=== PATIENT | female | born 1975 | race American Indian/Alaskan Native ===

== ENCOUNTER 2020-12-10 15:46 | Emergency (ER) | payer MEDICAID ==
[2020-12-10 16:31] LABS: Basophils % (Auto) 0.2 % (0.0-1.8); Eosinophils % (Auto) 0.1 % (0.0-4.3); Hematocrit 44.9 % (30.3-42.9); Hemoglobin 15.4 gm/dl (10.1-14.3); Lymphocytes # (Auto) 0.8 K/mm3 (1.2-5.4); Lymphocytes % (Auto) 10.2 % (13.4-35.0); Mean Corpuscular HGB Conc 34 % (30-34); Mean Corpuscular Volume 93 fl (79-97); Monocytes # (Auto) 0.4 K/mm3 (0.0-0.8); Monocytes % (Auto) 5.4 % (0.0-7.3); Platelet Count 204 K/mm3 (140-440); Red Blood Count 4.83 M/mm3 (3.65-5.03); Red Cell Distribution Width 14.3 % (13.2-15.2)
--- NOTE | 2020-12-10 16:39 | XRay Report ---
XR chest 1V ap INDICATION / CLINICAL INFORMATION: hypertension. COMPARISON: None available. FINDINGS: SUPPORT DEVICES: None. HEART /PULMONARY VASCULATURE: No significant abnormality. LUNGS / PLEURA: No significant pulmonary or pleural abnormality. No pneumothorax. ADDITIONAL FINDINGS: No significant additional findings. IMPRESSION: 1. No acute findings. Signer Name: Abdirahman Lopez MD Signed: 12/10/2020 4:35 PM Workstation Name: [id number]
[2020-12-10 16:41] LABS: INR 1.05 (0.87-1.13)
[2020-12-10 16:42] LABS: Partial Thromboplastin Time 28.2 Sec. (24.2-36.6)
[2020-12-10 16:59] LABS: Alanine Aminotransferase 12 units/L (7-56); Albumin 4.3 g/dL (3.9-5); Blood Urea Nitrogen 6 mg/dL (7-17); Calcium 9.2 mg/dL (8.4-10.2); Creatine Kinase MB 1.2 ng/mL (0.0-4.0); Hemolysis Index 8
[2020-12-10 17:16] LABS: BUN/Creatinine Ratio 10; Bilirubin,Direct < 0.2 mg/dL (0-0.2)
--- NOTE | 2020-12-10 17:51 | Emergency Department Report ---
ED General Adult HPI - General Chief complaint: Arrhythmia/Palpitations Stated complaint: ELEVATED HEART RATE Time Seen by Provider: 12/10/20 16:07 Source: patient, EMS Mode of arrival: Stretcher Limitations: No Limitations - History of Present Illness Initial comments: 45-year-old female states that she abruptly felt like her heart was racing. She was found to be in a "a flutter" by EMS. Review of her prehospital EKG was more suggestive of SVT. In any case an IV was initiated and the patient was given fluid. She promptly converted to normal sinus rhythm. Patient stated that she has never been hospitalized in the past. She is on no current medications. She is not compliant with her lisinopril which she thinks was 5 mg tablets. She denies having any other cardiovascular issues. Patient admits to "going to the club" last night. She denies substance use other than marijuana. She was drinking alcohol last night. Patient stated that she briefly felt short of breath with the rapid heart rate. But this resolved with "the fluids". She denies any chest pain. She denies any leg swelling or cough. She did not get dizzy or presyncopal. -: Sudden Consistency: now resolved Improves with: none Worsens with: none Associated Symptoms: denies other symptoms Treatments Prior to Arrival: none - Related Data Previous Rx's Medication Instructions Recorded Last Taken Type amLODIPine 10 mg PO DAILY #30 tab 12/10/20 Unknown Rx Allergies Allergy/AdvReac Type Severity Reaction Status Date / Time shellfish derived Allergy Anaphylaxis Verified 12/10/20 15:56 ED Review of Systems ROS: Stated complaint: ELEVATED HEART RATE Other details as noted in HPI Constitutional: denies: chills, fever Eyes: denies: eye pain, vision change ENT: denies: ear pain, throat pain Respiratory: see HPI, shortness of breath. denies: cough Cardiovascular: denies: chest pain, palpitations Endocrine: no symptoms reported Gastrointestinal: denies: abdominal pain, nausea, diarrhea Genitourinary: denies: urgency, dysuria, discharge Musculoskeletal: denies: back pain, joint swelling, arthralgia Skin: denies: rash, lesions Neurological: denies: headache, weakness, paresthesias Psychiatric: denies: anxiety, depression Hematological/Lymphatic: denies: easy bleeding, easy bruising ED Past Medical Hx - Past Medical History Previous Medical History?: No - Surgical History Past Surgical History?: No - Social History Smoking Status: Current Every Day Smoker Substance Use Type: Alcohol, Marijuana - Medications Home Medications: Home Medications Medication Instructions Recorded Confirmed Last Taken Type amLODIPine 10 mg PO DAILY #30 tab 12/10/20 Unknown Rx ED Physical Exam - General Limitations: No Limitations General appearance: alert, in no apparent distress - Head Head exam: Present: atraumatic, normocephalic - Eye Eye exam: Present: normal appearance. Absent: scleral icterus - ENT ENT exam: Present: mucous membranes moist - Neck Neck exam: Present: normal inspection. Absent: tenderness - Respiratory Respiratory exam: Present: normal lung sounds bilaterally. Absent: respiratory distress - Cardiovascular Cardiovascular Exam: Present: regular rate, normal rhythm. Absent: systolic murmur, diastolic murmur, rubs, gallop - GI/Abdominal GI/Abdominal exam: Present: soft, normal bowel sounds. Absent: distended, tenderness, guarding, rebound, rigid - Extremities Exam Extremities exam: Present: normal inspection, normal capillary refill. Absent: pedal edema, joint swelling, calf tenderness - Back Exam Back exam: Present: normal inspection - Neurological Exam Neurological exam: Present: alert, oriented X3, CN II-XII intact. Absent: motor sensory deficit - Psychiatric Psychiatric exam: Present: normal affect, normal mood - Skin Skin exam: Present: warm, dry, intact, normal color. Absent: rash ED Course Vital Signs 12/10/20 12/10/20 12/10/20 16:02 16:04 16:16 Temperature 98.2 F Pulse Rate 93 H Respiratory 15 18 Rate O2 Sat by Pulse 99 100 Oximetry - Reevaluation(s) Reevaluation #1: Charge nurse stated to me that the patient wanted to leave AGAINST MEDICAL ADVICE. I will not require her to sign out AGAINST MEDICAL ADVICE. She is gi bren a prescription for amlodipine, referral to primary care and cardiology. 12/10/20 18:02 ED Medical Decision Making - Lab Data Result diagrams: 12/10/20 16:21 12/10/20 16:21 Laboratory Results - last 24 hr 12/10/20 12/10/20 12/10/20 16:21 16:21 16:21 WBC 7.5 RBC 4.83 Hgb 15.4 H Hct 44.9 H MCV 93 MCH 32 MCHC 34 RDW 14.3 Plt Count 204 Lymph % (Auto) 10.2 L [place] % (Auto) 5.4 Eos % (Auto) 0.1 Baso % (Auto) 0.2 Lymph # (Auto) 0.8 L [place] # (Auto) 0.4 Eos # (Auto) 0.0 Baso # (Auto) 0.0 Seg Neutrophils % 84.1 H Seg Neutrophils # 6.3 PT 13.5 INR 1.05 APTT 28.2 Sodium 139 Potassium 3.7 Chloride 102.8 Carbon Dioxide 25 Anion Gap 15 BUN 6 L Creatinine 0.6 Estimated GFR > 60 BUN/Creatinine Ratio 10 Glucose 100 Calcium 9.2 Magnesium 1.60 L Total Bilirubin 0.50 Direct Bilirubin < 0.2 Indirect Bilirubin 0.3 AST 20 ALT 12 Alkaline Phosphatase 140 H Total Creatine Kinase 64 CK-MB (CK-2) 1.2 CK-MB (CK-2) Rel Index 1.8 Troponin T < 0.010 Total Protein 9.0 H Albumin 4.3 Albumin/Globulin Ratio 0.9 TSH 12/10/20 16:21 WBC RBC Hgb Hct MCV MCH MCHC RDW Plt Count Lymph % (Auto) [place] % (Auto) Eos % (Auto) Baso % (Auto) Lymph # (Auto) [place] # (Auto) Eos # (Auto) Baso # (Auto) Seg Neutrophils % Seg Neutrophils # PT INR APTT Sodium Potassium Chloride Carbon Dioxide Anion Gap BUN Creatinine Estimated GFR BUN/Creatinine Ratio Glucose Calcium Magnesium Total Bilirubin Direct Bilirubin Indirect Bilirubin AST ALT Alkaline Phosphatase Total Creatine Kinase CK-MB (CK-2) CK-MB (CK-2) Rel Index Troponin T Total Protein Albumin Albumin/Globulin Ratio TSH 0.456 - EKG Data -: EKG Interpreted by Me (2 prehospital EKGs are interpreted) EKG shows normal: sinus rhythm Rate: normal - EKG Data Interpretation: no acute changes Prehospital EKG shows SVT at about 145. There are retrograde P waves. 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 Atrial flutter could be considered but I do not see definite evidence of this. 12/10/20 18:21 - Radiology Data Radiology results: report reviewed Chest x-ray no acute process Critical care attestation.: If time is entered above; I have spent that time in minutes in the direct care of this critically ill patient, excluding procedure time. ED Disposition Clinical Impression: SVT (supraventricular tachycardia) Disposition: DC-01 TO HOME OR SELFCARE Is pt being admited?: No Does the pt Need Aspirin: No Condition: Stable Instructions: Supraventricular Tachycardia, Adult, [id number] Additional Instructions: Avoid excessive alcohol. Follow-up with [facility]. Prescriptions: amLODIPine 10 mg PO DAILY #30 tab Referrals: PRIMARY CAREMD [Primary Care Provider] - 3-5 Days RAYNE AGUILAR MD [Staff Physician] - 3-5 Days [facility] [Provider Group] - 2-3 Days Time of Disposition: 17:47
== END 2020-12-10 18:00 | disposition home or self-care (01) ==
LOC: ED 15:46
DX: I47.1 Supraventricular tachycardia (principal); F17.200 Nicotine dependence, unspecified, uncomplicated; F12.90 Cannabis use, unspecified, uncomplicated; Z79.899 Other long term (current) drug therapy; Z91.013 Allergy to seafood
CPT/HCPCS: 36415; 71045; 80048; 80076; 82550; 82553; 83735; 84443; 84484; 85025; 85610; 85730